=== PATIENT | male | born 1980 | race Caucasian/White ===

== ENCOUNTER 2019-05-15 20:05 | Emergency (ER) | payer MEDICAID, OTHER ==
[~2019-05-15] VITALS: Ht 182.9 cm; Wt 140.6 kg
[2019-05-15] MEDS ORDERED: HYDROcodone/APAP 5 MG/325 MG (LORTAB) TAB PO ONE (20:30)
[2019-05-15] MEDS ORDERED: IBUPROFEN 800 MG (MOTRIN) TAB PO ONE (20:30)
--- NOTE | 2019-05-15 20:46 | Diagnostic Imaging Report ---
EXAM: Elbow 3 view, right. INDICATION: Right elbow pain and numbness. COMPARISON: None. FINDINGS: No fracture or malalignment. No suspicious osteoblastic or lytic lesions. Normal soft tissue shadows. IMPRESSION: Negative right elbow radiographs. Dictated by: Dictated on workstation # [id number]
[2019-05-15] MEDS ORDERED: TRAM50TA2 PO (20:57)
[2019-05-15 21:10] VITALS: BP 107/72
--- NOTE | 2019-05-16 11:15 | ED Upper Extremity ---
General Chief Complaint: Upper Extremity Stated Complaint: RIGHT ELBOW,ARM PAIN Nursing Triage Note: pt states pain and numbness started to right elbow at work today, pt does alot of lifting Nursing Sepsis Screen: No Definite Risk Source: patient Exam Limitations: no limitations History of Present Illness Date Seen by Provider: May 15, 2019 Time Seen by Provider: 20:00 Initial Comments Patient is a right-handed male presents with right elbow pain and tenderness and swelling after repetitive lifting today at work. Patient states to wash his disinterested lifting heavy boxes at work. Denies trauma to this region. Extremity weakness or loss of sensation. No chest pain palpitation shortness of breath. No other acute symptoms or complaints. Symptoms are just rated as moderate and worse with movement and palpation. No medications or therapies taken prior to ED arrival. Onset: this afternoon Pain/Injury Location: right elbow Modifying Factors: Improves With Movement Allergies and Home Medications Allergies Coded Allergies: No Known Drug Allergies (Unverified , 05/15/19) Home Medications Tramadol HCl 50 Mg Tablet, 50 MG PO Q6H PRN for PAIN Prescribed by: CHRISTIAN MARKHAM on 05/15/192056 Patient Home Medication List Home Medication List Reviewed: Yes Review of Systems Constitutional: see HPI EENTM: see HPI Respiratory: see HPI Cardiovascular: see HPI Gastrointestinal: see HPI Genitourinary: see HPI Musculoskeletal: see HPI Skin: see HPI Psychiatric/Neurological: See HPI Past Mmivxao-Wgqfhz-Wqnbaq Hx Past Med/Social Hx: Reviewed Nursing Past Med/Soc Hx Patient Social History Alcohol Use: Denies Use Recreational Drug Use: No Smoking Status: Never a Smoker 2nd Hand Smoke Exposure: No Recent Foreign Travel: No Contact w/Someone Who Travel: No Recent Infectious Disease Expo: No Recent Hopitalizations: No Physical Abuse: No Sexual Abuse: No Mistreated: No Fear: No Seasonal Allergies Seasonal Allergies: No Past Medical History Surgeries: No Respiratory: No Cardiac: No Neurological: No Genitourinary: No Gastrointestinal: No Musculoskeletal: No Endocrine: No HEENT: No Cancer: No Psychosocial: No Integumentary: No Blood Disorders: No Physical Exam Vital Signs Vital Signs - First Documented 05/15/19 20:16 Temp 97.5 Pulse 76 Resp 18 B/P (MAP) 126/90 (102) Pulse Ox 94 O2 Delivery Room Air Capillary Refill : Less Than 3 Seconds Height, Weight, BMI Height: 6'0" Weight: 310lbs. oz. 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 Patient with symptoms consistent with bursitis versus epicondylitis. Recommend supportive care with PCP follow-up. Impression Primary Impression: Bursitis of right elbow Disposition: 01 HOME, SELF-CARE Condition: Improved Departure-Patient Inst. Add. Discharge Instructions: Please take ibuprofen three times daily for pain and inflammation and tramadol as needed for additional pain relief. Limit arm use the next 2-3 days or until symptoms improve. Follow-up with your PCP in 3-5 days for reevaluation if symptoms persist. All discharge instructions reviewed with patient and/or family. Voiced understanding. Scripts Tramadol HCl (Tramadol HCl) 50 Mg Tablet 50 MG PO Q6H PRN for PAIN for 3 Days, #12 TAB 0 Refills Prov: CHRISTIAN MARHKAM DO 05/15/19 CHRISTIAN MARKHAM DO May 16, 2019 11:15
== END 2019-05-15 21:10 | disposition home or self-care (01) ==
LOC: EDUNIT# 20:05 → ER FS 20:07
DX: M70.31 Other bursitis of elbow, right elbow (principal); X50.0XXA Overexertion from strenuous movement or load, initial encounter; Y92.59 Other trade areas as the place of occurrence of the external cause; Y99.0 Civilian activity done for income or pay
CPT/HCPCS: 73080

== ENCOUNTER 2020-06-05 19:15 | Emergency (ER) | payer SELFPAY ==
[~2020-06-05] VITALS: Ht 177.8 cm; Wt 142.8 kg
[2020-06-05 19:15] VITALS: BP 132/89
[~2020-06-05 19:15] MED LIST: TRM50T PO
[2020-06-05] MEDS ORDERED: PRD20T PO (19:53)
[2020-06-05] MEDS ORDERED: RT-ALBUINH IH (19:53)
[2020-06-05] MEDS ORDERED: DOXY100T2 PO (19:53)
--- NOTE | 2020-06-05 19:55 | Diagnostic Imaging Report ---
INDICATION: COVID-19 positive, shortness of breath EXAMINATION: Chest 06/05/2020 FINDINGS: Heart and pulmonary vasculature unremarkable. Very small nodularities in both lungs likely due to an atypical pneumonia with a very vague patchy airspace opacity in the left lower lung. No effusions or pneumothorax IMPRESSION: 1. Findings are consistent with pneumonia as noted above. Dictated by: Dictated on workstation # [id number]
--- NOTE | 2020-06-05 20:21 | ED Cough/URI ---
General Chief Complaint: Respiratory Problems Stated Complaint: COVID POSITIVE,TROUBLE BREATHING Nursing Triage Note: Patient states that he tested positive for Covid approximately 1 week ago. Patient states his symptoms began 05-27-20. Patient had a loss of taste and smell. Patient states that he has been coughing and he has had increasing shortness of breath. Sepsis Screen: No Definite Risk Source: patient History of Present Illness Date Seen by Provider: Jun 05, 2020 Time Seen by Provider: 19:00 Initial Comments Patient is a 40-year-old male with history of COPD who tested positive COVID 1 week ago. Patient reports intermittent fever for the past 2 days with increased shortness of breath today. Reports nonproductive cough. O2 saturation greater than 94% on room air. No nausea vomiting, dizziness lightheadedness. No chest pain palpitations. No leg pain or swelling. No other acute symptoms or complaints. Timing/Duration: week Severity/Quality: mild Prior Episodes/Possible Cause: no prior episodes Modifying Factors: Improves With Activity Associated Symptoms: cough, shortness of breath Allergies and Home Medications Allergies Coded Allergies: No Known Drug Allergies (Unverified , 05/15/19) Home Medications Albuterol Sulfate 1 Puff Puff, 2 PUFF IH Q4H 1 PUFF = 90 MCG Prescribed by: CHRISTIAN MARKHAM on 06/05/201952 Doxycycline Hyclate 100 Mg Tablet, 100 MG PO BID Prescribed by: CHRISTIAN MARKHAM on 06/05/201952 Prednisone 20 Mg Tab, 40 MG PO DAILY Prescribed by: CHRISTIAN MARKHAM on 06/05/201952 Tramadol HCl 50 Mg Tablet, 50 MG PO Q6H PRN for PAIN Prescribed by: CHRISTIAN MARKHAM on 05/15/192056 Patient Home Medication List Home Medication List Reviewed: Yes Review of Systems Review of Systems Constitutional: see HPI EENTM: see HPI Respiratory: see HPI Cardiovascular: see HPI Gastrointestinal: see HPI Genitourinary: see HPI Musculoskeletal: see HPI Skin: see HPI Psychiatric/Neurological: See HPI Hematologic/Lymphatic: See HPI Immunological/Allergic: see HPI All Other Systems Reviewed Negative Unless Noted: Yes Past Lmodhbr-Yraoaj-Ggcbye Hx Past Med/Social Hx: Reviewed Nursing Past Med/Soc Hx Patient Social History Alcohol Use: Denies Use Recreational Drug Use: No Smoking Status: Current Everyday Smoker Type Used: Cigarettes 2nd Hand Smoke Exposure: No Recent Foreign Travel: No Contact w/Someone Who Travel: No Recent Infectious Disease Expo: Yes (Covid 19) Recent Hopitalizations: No Physical Abuse: No Sexual Abuse: No Mistreated: No Fear: No Seasonal Allergies Seasonal Allergies: No Past Medical History Surgeries: No Respiratory: Yes COPD Cardiac: No Neurological: No Genitourinary: No Gastrointestinal: No Musculoskeletal: No Endocrine: Yes Diabetes, Non-Insulin dep HEENT: No Cancer: No Psychosocial: No Integumentary: No Blood Disorders: No Physical Exam Vital Signs - First Documented 06/05/20 19:15 Temp 36.6 Pulse 82 Resp 20 B/P (MAP) 132/89 (103) Pulse Ox 98 O2 Delivery Room Air Capillary Refill : Less Than 3 Seconds Height: 6'0" Weight: 310lbs. oz. 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, no motor/sensory deficits, alert, oriented x 3 Focused Exam Sepsis Stage: Ruled Out Progress/Results/Core Measures Suspected Sepsis Recent Fever Within 48 Hours: No Infection Criteria Present: Documented Infection New/Unexplained Altered Menta: No Sepsis Screen: No Definite Risk SIRS Temperature: Pulse: 82 Respiratory Rate: 20 Blood Pressure 132 /89 Mean: 103 Results/Orders My Orders Orders - CHRISTIAN MARKHAM DO Chest 1 View Ap/Pa Only (06/05/20 19:23) Covid-19 External Lab Results (06/05/20 19:33) Vital Signs/I&O 06/05/20 19:15 Temp 36.6 Pulse 82 Resp 20 B/P (MAP) 132/89 (103) Pulse Ox 98 O2 Delivery Room Air Capillary Refill : Less Than 3 Seconds Blood Pressure Mean: 103 Departure Communication (Admissions) Chest x-ray: Atypical pneumonia Patient's O2 saturations greater than 94% on room air.. He is able to walk with steady gait without have dislocated shortness of air while in parking lot. First dose of antibiotics given. Recommend continue home. Impression Primary Impression: COVID-19 Disposition: HOME, SELF-CARE Condition: Stable/Unchanged Departure-Patient Inst. Patient Instructions: Atypical Pneumonia (Mycoplasma and Viral) (DC) Add. Discharge Instructions: Please take medication as directed and follow up as per HPI. All other review of systems as per HPI. All discharge instructions reviewed with patient and/or family. Voiced understanding. Scripts Albuterol Sulfate (PROAIR HFA) 1 Puff Puff 2 PUFF IH Q4H, #1 PUFF 1 PUFF = 90 MCG Prov: CHRISTIAN MARKHAM DO 06/05/20 Prednisone (Prednisone) 20 Mg Tab 40 MG PO DAILY, #6 TAB 0 Refills Prov: CHRISTIAN MARKHAM DO 06/05/20 Doxycycline Hyclate (Doxycycline Hyclate) 100 Mg Tablet 100 MG PO BID, #20 TAB 0 Refills Prov: CHRISTIAN MARKHAM DO 06/05/20 CHRISTIAN MARKHAM DO Jun 05, 2020 20:21
== END 2020-06-05 20:02 | disposition home or self-care (01) ==
LOC: EDUNIT# 19:15 → ER FS 19:17
DX: U07.1 COVID-19 (principal); J44.9 Chronic obstructive pulmonary disease, unspecified; F17.210 Nicotine dependence, cigarettes, uncomplicated
CPT/HCPCS: 71045

== ENCOUNTER 2020-12-18 20:27 | Emergency (ER) | payer MEDICAID, OTHER ==
[~2020-12-18 20:27] MED LIST changes: +DOXY100T2 PO; +PRD20T PO; +RT-ALBUINH IH
--- NOTE | 2020-12-18 20:48 | ED Chest Pain ---
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 Pain diminishing and nearly resolved on arrival. Admits to history of panic attacks with similar symptoms in the past, although he states "this was different" denies any recent illness, fever chills, cough or shortness of air. Denies a history of any heart problems or lung disease. He is a non-smoker, denies illicit drug use or drinking alcohol. Does have significant family history of his father having a heart attack at age 50. Allergies and Home Medications Allergies Coded Allergies: No Known Drug Allergies (Unverified , 05/15/19) Home Medications Albuterol Sulfate 1 Puff Puff, 2 PUFF IH Q4H 1 PUFF = 90 MCG Prescribed by: CHRISTIAN MARKHAM on 06/05/201952 Doxycycline Hyclate 100 Mg Tablet, 100 MG PO BID Prescribed by: CHRISTIAN MARKHAM on 06/05/201952 Prednisone 20 Mg Tab, 40 MG PO DAILY Prescribed by: CHRISTIAN MARKHAM on 06/05/201952 Tramadol HCl 50 Mg Tablet, 50 MG PO Q6H PRN for PAIN Prescribed by: CHRISTIAN MARKHAM on 05/15/192056 Patient Home Medication List Home Medication List Reviewed: Yes Review of Systems Review of Systems Constitutional: No dizziness, No fever, No malaise, No weakness Respiratory: Denies Cough, Denies Shortness of Air Cardiovascular: See HPI, Chest Pain; Denies Edema, Denies Irregular Heart Rate, Denies Lightheadedness, Denies Palpitations, Denies Syncope Gastrointestinal: Denies Abdominal Pain, Denies Nausea, Denies Vomiting Musculoskeletal: No back pain, No joint pain Skin: No change in color, No rash Psychiatric/Neurological: Anxiety; Denies Headache, Denies Numbness, Denies Paresthesia Past Riqbdov-Pumfok-Olqkhm Hx Past Med/Social Hx: Reviewed Nursing Past Med/Soc Hx Patient Social History Alcohol Use: Denies Use Smoking Status: Former Smoker Type Used: Cigarettes 2nd Hand Smoke Exposure: No Recent Infectious Disease Expo: No Recent Hopitalizations: No Seasonal Allergies Seasonal Allergies: No Past Medical History Surgeries: No Respiratory: Yes COPD Cardiac: No Neurological: No Genitourinary: No Gastrointestinal: No Musculoskeletal: No Endocrine: Yes Diabetes, Non-Insulin dep HEENT: No Cancer: No Psychosocial: Yes Anxiety Integumentary: No Blood Disorders: No Physical Exam Vital Signs Vital Signs - First Documented 12/18/20 20:28 Temp 36.3 Pulse 98 Resp 18 B/P (MAP) 148/99 (115) Pulse Ox 98 O2 Delivery Room Air Capillary Refill : Less Than 3 Seconds Height, Weight, BMI Height: 6'0" Weight: 310lbs. oz. 140.284925iq; 45.00 BMI Method:Stated General Appearance: No Apparent Distress, WD/WN HEENT: PERRL/EOMI, Normal ENT Inspection Neck: Normal Inspection, Non Tender, Supple Respiratory: Chest Non Tender, Lungs Clear, Normal Breath Sounds, No Accessory Muscle Use, No Respiratory Distress Cardiovascular: Regular Rate, Rhythm, No Edema, No Gallop, No JVD, No Murmur Gastrointestinal: Non Tender, Soft; No Hepatomegaly, No Splenomegaly Progress/Results/Core Measures Results/Orders Lab Results Laboratory Tests Test 12/18/20 20:35 Range/Units White Blood Count 7.1 4.3-11.0 10^3/uL Red Blood Count 5.45 4.35-5.85 10^6/uL Hemoglobin 16.0 13.3-17.7 G/DL Hematocrit 46 40-54 % Mean Corpuscular Volume 85 80-99 FL Mean Corpuscular Hemoglobin 29 25-34 PG Mean Corpuscular Hemoglobin Concent 35 32-36 G/DL Red Cell Distribution Width 14.2 10.0-14.5 % Platelet Count 216 130-400 10^3/uL Mean Platelet Volume 10.8 H 7.4-10.4 FL Immature Granulocyte % (Auto) 0 % Neutrophils (%) (Auto) 62 42-75 % Lymphocytes (%) (Auto) 30 12-44 % Monocytes (%) (Auto) 6 0-12 % Eosinophils (%) (Auto) 1 0-10 % Basophils (%) (Auto) 1 0-10 % Neutrophils # (Auto) 4.4 1.8-7.8 X 10^3 Lymphocytes # (Auto) 2.2 1.0-4.0 X 10^3 Monocytes # (Auto) 0.4 0.0-1.0 X 10^3 Eosinophils # (Auto) 0.1 0.0-0.3 10^3/uL Basophils # (Auto) 0.0 0.0-0.1 10^3/uL Immature Granulocyte # (Auto) 0.0 0.0-0.1 10^3/uL Sodium Level 141 135-145 MMOL/L Potassium Level 3.4 L 3.6-5.0 MMOL/L Chloride Level 103 98-107 MMOL/L Carbon Dioxide Level 28 21-32 MMOL/L Anion Gap 10 5-14 MMOL/L Blood Urea Nitrogen 9 7-18 MG/DL Creatinine 0.89 0.60-1.30 MG/DL Estimat Glomerular Filtration Rate > 60 BUN/Creatinine Ratio 10 Glucose Level 127 H 70-105 MG/DL Calcium Level 9.4 8.5-10.1 MG/DL Corrected Calcium 9.1 8.5-10.1 MG/DL Total Bilirubin 0.6 0.1-1.0 MG/DL Aspartate Amino Transf (AST/SGOT) 66 H 5-34 U/L Alanine Aminotransferase (ALT/SGPT) 95 H 0-55 U/L Alkaline Phosphatase 95 40-136 U/L Troponin I < 0.30 <0.30 NG/ML Total Protein 7.6 6.4-8.2 GM/DL Albumin 4.4 3.2-4.5 GM/DL My Orders Orders - ROVENSTINEROBYN L DO Ed Iv/Invasive Line Start (12/18/20 20:43) Chest 1 View Ap/Pa Only (12/18/20 20:43) Ekg Tracing (12/18/20 20:43) Cbc With Automated Diff (12/18/20 20:43) Comprehensive Metabolic Panel (12/18/20 20:43) Troponin I Fs (12/18/20 20:43) Vital Signs/I&O 12/18/20 20:28 Temp 36.3 Pulse 98 Resp 18 B/P (MAP) 148/99 (115) Pulse Ox 98 O2 Delivery Room Air Blood Pressure Mean: 115 Initial ECG Impression Date: Dec 18, 2020 Initial ECG Impression Time: 20:35 Initial ECG Rate: 98 Initial ECG Rhythm: Normal Sinus Initial ECG Impression: Normal Initial ECG Comparisson: No Previous ECG Available Diagnostic Imaging Diagonstic Imaging: Xray Plain Films/CT/US/NM/MRI: chest Departure Impression Primary Impression: Chest pain Qualified Codes: R07.9 - Chest pain, unspecified Disposition: 01 HOME, SELF-CARE Condition: Stable Departure-Patient Inst. Referrals: NONI WAGGONER MD (PCP/Family) Primary Care Physician Patient Instructions: Chest Pain (DC) Add. Discharge Instructions: Call Dr Waggoner tomorrow to schedule a follow up appointment in 1 week All discharge instructions reviewed with patient and/or family. Voiced understbev bradford. ROBYN JOHNSON DO Dec 18, 2020 20:48
[2020-12-18 20:52] LABS: BASOPHILS % (AUTO) 1 % (0-10); EOSINOPHILS # (AUTO) 0.1 10^3/uL (0.0-0.3); EOSINOPHILS % (AUTO) 1 % (0-10); HEMATOCRIT 46 % (40-54); LYMPHOCYTES # (AUTO) 2.2 X 10^3 (1.0-4.0); LYMPHOCYTES % (AUTO) 30 % (12-44); MEAN CORPUSCULAR HEMOGLOBIN 29 PG (25-34); MEAN CORPUSCULAR HGB CONC 35 G/DL (32-36); MEAN CORPUSCULAR VOLUME 85 FL (80-99); MEAN PLATELET VOLUME 10.8 FL (7.4-10.4); MONOCYTES # (AUTO) 0.4 X 10^3 (0.0-1.0); MONOCYTES % (AUTO) 6 % (0-12); NEUTROPHILS # (AUTO) 4.4 X 10^3 (1.8-7.8); NEUTROPHILS % (AUTO) 62 % (42-75); PLATELET COUNT 216 10^3/uL (130-400); WHITE BLOOD COUNT 7.1 10^3/uL (4.3-11.0)
--- NOTE | 2020-12-18 21:01 | Diagnostic Imaging Report ---
EXAMINATION: Chest 1 view HISTORY: Chest pain COMPARISON: Chest radiograph 06/05/2020 FINDINGS: Stable mild enlargement of the cardiac silhouette. Stable low lung volumes. No consolidation, pleural effusion, or pneumothorax. The osseous structures are intact. IMPRESSION: 1. No acute radiographic abnormality in the chest. Dictated by: Dictated on workstation # [id number]
[2020-12-18 21:09] LABS: SODIUM 141 MMOL/L (135-145)
[2020-12-18 21:11] LABS: ALKALINE PHOSPHATASE 95 U/L (40-136); BILIRUBIN,TOTAL 0.6 MG/DL (0.1-1.0); BUN/CREATININE RATIO 10; CALCIUM 9.4 MG/DL (8.5-10.1); CARBON DIOXIDE 28 MMOL/L (21-32); CHLORIDE 103 MMOL/L (98-107); CREATININE SERUM 0.89 MG/DL (0.60-1.30); GFR ESTIMATED > 60; GLUCOSE 127 MG/DL (70-105); POTASSIUM 3.4 MMOL/L (3.6-5.0)
[2020-12-18 21:12] LABS: ALANINE AMINOTRANSFERASE 95 U/L (0-55); ALBUMIN 4.4 GM/DL (3.2-4.5); TOTAL PROTEIN 7.6 GM/DL (6.4-8.2)
[2020-12-18 21:45] VITALS: BP 139/88
== END 2020-12-18 21:49 | disposition home or self-care (01) ==
LOC: EDUNIT# 20:27 → ER FS 20:28
DX: R07.89 Other chest pain (principal); E11.9 Type 2 diabetes mellitus without complications; J44.9 Chronic obstructive pulmonary disease, unspecified; Z87.891 Personal history of nicotine dependence; Z79.52 Long term (current) use of systemic steroids
CPT/HCPCS: 36415; 71045; 80053; 84484; 85025; 93005

== ENCOUNTER 2021-09-04 12:37 | Emergency (ER) | payer MEDICAID ==
[~2021-09-04] VITALS: Ht 182.9 cm; Wt 148.3 kg
[2021-09-04] MEDS ORDERED: PANTOPRAZOLE 40 MG (PROTONIX) VIAL IV STA (12:56)
[2021-09-04] MEDS ORDERED: NS IV 1000 ML 1,000 ML IV STA (12:56)
[2021-09-04] MEDS ORDERED: ONDANSETRON 4 MG/2 ML (SDV) Z0FRAN IVP STA (12:56)
--- NOTE | 2021-09-04 13:07 | ED GI ---
General Chief Complaint: Abdominal/GI Problems Stated Complaint: DIARRHEA; VOMITING Nursing Triage Note: Patient reports nausea/vomiting/diarrhea since 0800 this morning. He reports he has been unable to keep down any fluids and feels like he is going to pass out when he stands and walks. Source of Information: Patient, Spouse History of Present Illness Date Seen by Provider: Sep 04, 2021 Time Seen by Provider: 12:41 Initial Comments 41-year-old male presenting with complaints of nausea, vomiting, diarrhea since 8 AM this morning. He states he has not been able to keep any food or fluids down since this morning. He last ate a turkey sandwich last night. This morning he has been sick and had over 4 episodes of vomiting and multiple episodes of diarrhea. He reports the diarrhea is watery in nature. He has some diffuse abdominal cramping that is worse in the epigastric area. He did try taking a Zofran from the family member but it did not stop his vomiting. He denies any fever or chills. He has no pain with urination. He denies seeing any blood in his stool or urine. He has had no surgeries on his abdomen in the past. He feels like his mouth is dry and he gets dizzy and lightheaded when he stands up. Timing/Duration: 4-6 Hours Severity/Quality: Severe (severe nausea,vomiting,diarrhea), Cramping (mild epigastric cramping) Location: Epigastric, Generalized Abdomen (worse in epigastric) Radiation: No Radiation Activities at Onset: None Modifying Factors: Worsens With Eating, Worsens With Palpation Associated Symptoms: No Back Pain, No Chest Pain, No Diaphoresis, No Fever/Chills, No Fatigue, No Headache; Heartburn, Nausea/Vomiting; No Rash, No Shortness of Air, No Swelling/Mass in Abdomen, No Syncope, No Weakness Allergies and Home Medications Allergies Coded Allergies: No Known Drug Allergies (Unverified , 05/15/19) Patient Home Medication List Home Medication List Reviewed: Yes Albuterol Sulfate (Proair Hfa) 1 Puff Puff, 2 PUFF IH Q4H Prescribed by: CHRISTIAN MARKHAM on 06/05/201952 Doxycycline Hyclate (Doxycycline Hyclate) 100 Mg Tablet, 100 MG PO BID Prescribed by: CHRISTIAN MARKHAM on 06/05/201952 Metoclopramide HCl (Metoclopramide HCl) 10 Mg Tablet, 10 MG PO Q6H PRN for NAUSEA/VOMITING Prescribed by: JO LEBLANC on 09/04/21 1518 Prednisone (Prednisone) 20 Mg Tab, 40 MG PO DAILY Prescribed by: CHRISTIAN MARKHAM on 06/05/201952 Tramadol HCl (Tramadol HCl) 50 Mg Tablet, 50 MG PO Q6H PRN for PAIN Prescribed by: CHRISTIAN MARKHAM on 05/15/192056 Review of Systems Review of Systems Constitutional: No chills; dizziness (with standing); No fever EENTM: No Symptoms Reported Respiratory: No Symptoms Reported Cardiovascular: No Symptoms Reported Gastrointestinal: See HPI Genitourinary: Denies Burning, Denies Frequency, Denies Hematuria Musculoskeletal: no symptoms reported Skin: no symptoms reported Psychiatric/Neurological: No Symptoms Reported Past Xntllxa-Ommmvr-Hjclhy Hx Seasonal Allergies Seasonal Allergies: No Past Medical History Surgery/Hospitalization HX: hypercholesterolemia, anxiety, GERD Surgeries: No Respiratory: Yes COPD Cardiac: No Neurological: No Genitourinary: No Gastrointestinal: No Musculoskeletal: No Endocrine: Yes Diabetes, Non-Insulin dep HEENT: No Cancer: No Psychosocial: Yes Anxiety Integumentary: No Blood Disorders: No Physical Exam Vital Signs Vital Signs - First Documented 09/04/21 12:45 Temp 36.6 Pulse 100 Resp 18 B/P (MAP) 116/87 (97) Pulse Ox 96 O2 Delivery Room Air Capillary Refill : Less Than 3 Seconds Height/Weight/BMI Height: 6'0" Weight: 310lbs. oz. [id number]; 44.00 BMI Method:Stated General Appearance: no apparent distress, obese HEENT: PERRL/EOMI, pharynx normal Neck: non-tender, full range of motion, supple, normal inspection Respiratory: chest non-tender, lungs clear, normal breath sounds, no respiratory distress, no accessory muscle use Cardiovascular: normal peripheral pulses, regular rate, rhythm Gastrointestinal: normal bowel sounds, soft, no pulsatile mass; No guarding, No rebound; tenderness (diffuse mild cramping abdominal pain, worse in epigastric area), other (Negative Vo's. Negative McBurney's point pain) Rectal: deferred Extremities: normal range of motion, non-tender, normal capillary refill Neurologic/Psychiatric: alert, oriented x 3 Skin: normal color, warm/dry Images 1 - diffuse mild cramping abdominal pain, worse in epigastric area Progress/Results/Core Measures Results/Orders Lab Results Laboratory Tests Test 09/04/21 13:00 09/04/21 13:57 Range/Units White Blood Count 11.2 H 4.3-11.0 10^3/uL Red Blood Count 5.71 H 4.30-5.52 10^6/uL Hemoglobin 16.6 13.3-17.7 g/dL Hematocrit 48 40-54 % Mean Corpuscular Volume 84 80-99 fL Mean Corpuscular Hemoglobin 29 25-34 pg Mean Corpuscular Hemoglobin Concent 35 32-36 g/dL Red Cell Distribution Width 13.8 10.0-14.5 % Platelet Count 207 130-400 10^3/uL Mean Platelet Volume 10.6 9.0-12.2 fL Neutrophils (%) (Auto) 91 H 42-75 % Lymphocytes (%) (Auto) 4 L 12-44 % Monocytes (%) (Auto) 5 0-12 % Eosinophils (%) (Auto) 0 0-10 % Basophils (%) (Auto) 0 0-10 % Neutrophils # (Auto) 10.2 H 1.8-7.8 X 10^3 Lymphocytes # (Auto) 0.4 L 1.0-4.0 X 10^3 Monocytes # (Auto) 0.6 0.0-1.0 X 10^3 Eosinophils # (Auto) 0.0 0.0-0.3 10^3/uL Basophils # (Auto) 0.0 0.0-0.1 10^3/uL Neutrophils % (Manual) 72 % Lymphocytes % (Manual) 3 % Monocytes % (Manual) 6 % Eosinophils % (Manual) 1 % Basophils % (Manual) 0 % Band Neutrophils 17 % Platelet Estimate NORMAL Blood Morphology Comment NORMAL Sodium Level 138 135-145 MMOL/L Potassium Level 3.9 3.6-5.0 MMOL/L Chloride Level 99 98-107 MMOL/L Carbon Dioxide Level 24 21-32 MMOL/L Anion Gap 15 H 5-14 MMOL/L Blood Urea Nitrogen 10 7-18 MG/DL Creatinine 0.82 0.60-1.30 MG/DL Estimat Glomerular Filtration Rate 104 BUN/Creatinine Ratio 12 Glucose Level 227 H 70-105 MG/DL Calcium Level 9.5 8.5-10.1 MG/DL Corrected Calcium 9.2 8.5-10.1 MG/DL Total Bilirubin 0.8 0.1-1.0 MG/DL Aspartate Amino Transf (AST/SGOT) 32 5-34 U/L Alanine Aminotransferase (ALT/SGPT) 44 0-55 U/L Alkaline Phosphatase 98 40-136 U/L Total Protein 8.3 H 6.4-8.2 GM/DL Albumin 4.4 3.2-4.5 GM/DL Lipase 18 8-78 U/L Urine Color YELLOW Urine Clarity CLEAR Urine pH 8.5 5-9 Urine Specific [place] 1.015 L 1.016-1.022 Urine Protein NEGATIVE NEGATIVE Urine Glucose (UA) NEGATIVE NEGATIVE Urine Ketones 2+ H NEGATIVE Urine Nitrite NEGATIVE NEGATIVE Urine Bilirubin NEGATIVE NEGATIVE Urine Urobilinogen 0.2 < = 1.0 MG/DL Urine Leukocyte Esterase NEGATIVE NEGATIVE Urine RBC (Auto) NEGATIVE NEGATIVE Urine RBC NONE /HPF Urine WBC 2-5 /HPF Urine Squamous Epithelial Cells 2-5 /HPF Urine Crystals NONE /LPF Urine Bacteria NEGATIVE /HPF Urine Casts NONE /LPF Urine Mucus SMALL H /LPF Urine Culture Indicated NO My Orders Orders - JO LEBLANC MD Comprehensive Metabolic Panel (09/04/21 12:56) Lipase (09/04/21 12:56) Ua Culture If Indicated (09/04/21 12:56) Ed Iv/Invasive Line Start (09/04/21 12:56) Cbc With Automated Diff (09/04/21 12:56) Ondansetron Injection (Zofran Injectio (09/04/21 12:56) Pantoprazole Injection (Protonix Injecti (09/04/21 12:56) Ns Iv 1000 Ml (Sodium Chloride 0.9%) (09/04/21 12:56) Manual Differential (09/04/21 13:00) Vital Signs/I&O 09/04/21 09/04/21 12:45 15:23 Temp 36.6 Pulse 100 91 Resp 18 18 B/P (MAP) 116/87 (97) 110/66 Pulse Ox 96 98 O2 Delivery Room Air Room Air Blood Pressure Mean: 97 Progress Progress Note #1: Progress Note Obtain labs as well as urinalysis. Give IV fluids for hydration, Zofran for nausea, Protonix for gastritis. If he has an elevated white blood cell count or signs for infection or abnormal chemistry panel and then he may also warrant a CT scan of his abdomen and pelvis. Otherwise we will see how he responds to symptomatic treatment of his nausea, vomiting, diarrhea and epigastric pain over the stomach area. Progress Note #2: Progress Note Labs show white blood cell count at upper limit of normal at 11.2. His chemistry did not show acute significant abnormality to account for his vomiting and diarrhea. His urinalysis was not showing infection. He did have an elevated glucose considering he is diabetic and not taking any medicines and is currently under extra stress from an infection this is not unusual. He was tolerating oral intake in the ED without emesis. He had no diarrhea while in the ED. He reports feeling better after treatment in the ED. Will discharge to home to continue liquid diet for the next 24 to 48 hours. Prescribed Reglan since he had tried this family members Zofran and it did not help at home. Encouraged to use acid reducing medicine as well. Try to avoid taking Imodium more medicines to stop his diarrhea has it be best to let what ever is irritating his gut get out of his system if possible. Encouraged to f ollow-up through the clinic for continued concerns Departure Impression Primary Impression: Nausea vomiting and diarrhea Additional Impression: Epigastric abdominal pain Disposition: 01 HOME, SELF-CARE Condition: Stable Departure-Patient Inst. Decision time for Depature: 15:14 Referrals: NONI WAGGONER MD (PCP/Family) Primary Care Physician Patient Instructions: Diarrhea, Adult ED, Full Liquid Diet, Gastritis ED, Nausea and Vomiting, Adult ED Add. Discharge Instructions: Follow a liquid diet for next 24 to 48 hours to help with hydration and letting your stomach have a gentle easy time with digesting. Try using the nausea medicine to help keep your stomach settled. After 24 to 48 hours if you are tolerating the liquids you could advance to more bland and then to regular fluids as you tolerate them. All discharge instructions reviewed with patient and/or family. Voiced understanding. Scripts Metoclopramide HCl (Metoclopramide HCl) 10 Mg Tablet 10 MG PO Q6H PRN for NAUSEA/VOMITING for 3 Days, #12 TAB 0 Refills Prov: JO LEBLANC MD 09/04/21 Images Torso/Trunk 1 - Tenderness (Mild tenderness epigastric area with palpation. Obese abdomen. No rebound, guarding.) JO LEBLANC MD Sep 04, 2021 13:07
[2021-09-04 13:15] LABS: WHITE BLOOD COUNT 11.2 10^3/uL (4.3-11.0)
[2021-09-04 13:16] LABS: BASOPHILS % (AUTO) 0 % (0-10); EOSINOPHILS % (AUTO) 0 % (0-10); HEMATOCRIT 48 % (40-54); HEMOGLOBIN 16.6 g/dL (13.3-17.7); LYMPHOCYTES # (AUTO) 0.4 X 10^3 (1.0-4.0); LYMPHOCYTES % (AUTO) 4 % (12-44); MEAN CORPUSCULAR HEMOGLOBIN 29 pg (25-34); MEAN CORPUSCULAR HGB CONC 35 g/dL (32-36); MEAN CORPUSCULAR VOLUME 84 fL (80-99); MEAN PLATELET VOLUME 10.6 fL (9.0-12.2); MONOCYTES # (AUTO) 0.6 X 10^3 (0.0-1.0); MONOCYTES % (AUTO) 5 % (0-12); NEUTROPHILS # (AUTO) 10.2 X 10^3 (1.8-7.8); NEUTROPHILS % (AUTO) 91 % (42-75); PLATELET COUNT 207 10^3/uL (130-400)
[2021-09-04 13:43] LABS: ALBUMIN 4.4 GM/DL (3.2-4.5); BILIRUBIN,TOTAL 0.8 MG/DL (0.1-1.0); CALCIUM 9.5 MG/DL (8.5-10.1); CREATININE SERUM 0.82 MG/DL (0.60-1.30); POTASSIUM 3.9 MMOL/L (3.6-5.0); TOTAL PROTEIN 8.3 GM/DL (6.4-8.2)
[2021-09-04 13:47] LABS: BAND NEUTROPHILS 17 %; BASOPHILS % (MANUAL) 0 %; EOSINOPHILS % (MANUAL) 1 %; LYMPHOCYTES % (MANUAL) 3 %; MONOCYTES % (MANUAL) 6 %; NEUTROPHILS % (MANUAL) 72 %
[2021-09-04 13:48] LABS: PLATELET ESTIMATE NORMAL; RBC MORPH NORMAL
[2021-09-04 14:07] LABS: BILIRUBIN,URINE NEGATIVE (NEGATIVE); CLARITY,URINE CLEAR; COLOR,URINE YELLOW; GLUCOSE, URINE (UA) NEGATIVE (NEGATIVE); KETONES,URINE 2+ (NEGATIVE); LEUKOCYTE ESTERASE ,URINE NEGATIVE (NEGATIVE); NITRITE,URINE NEGATIVE (NEGATIVE); PH,URINE 8.5 (5-9); PROTEIN,URINE NEGATIVE (NEGATIVE)
[2021-09-04 14:11] LABS: BACTERIA,URINE NEGATIVE /HPF
[2021-09-04] MEDS ORDERED: MTC10T PO (15:18)
[2021-09-04 15:23] VITALS: BP 110/66
== END 2021-09-04 15:26 | disposition home or self-care (01) ==
LOC: EDUNIT# 12:37 → ER FS 12:38
DX: R11.2 Nausea with vomiting, unspecified (principal); R19.7 Diarrhea, unspecified; E11.9 Type 2 diabetes mellitus without complications; J44.9 Chronic obstructive pulmonary disease, unspecified; Z79.52 Long term (current) use of systemic steroids
CPT/HCPCS: 36415; 80053; 81000; 83690; 85007; 85027